=== PATIENT | female | born 1960 | race Caucasian/White ===

== ENCOUNTER → 2018-07-09 | Outpatient (CLI) | payer BC ==
--- NOTE | 2018-07-09 08:23 | CT ---
EXAMINATION TYPE: CT image guided sinus DATE OF EXAM: 07/09/2018 COMPARISON: None HISTORY: Chronic Sinusitis CT DLP: 511 mGycm. Automated Exposure Control for Dose Reduction was Utilized. TECHNIQUE: CT scan of the sinuses is performed without contrast. Axial images are reviewed for CT nupur ge guided sinus procedure. FINDINGS: There is evidence of moderate pansinusitis. Underlying polyposis not excluded. No fracture or bone destruction seen. IMPRESSION: Moderate pansinusitis. Underlying polyposis not excluded.
== END ==
LOC: RADCTMAIN 07:45
PROVIDERS: ATTEND Otolaryngology
DX: J32.4 Chronic pansinusitis (principal)
CPT/HCPCS: 70486

== ENCOUNTER 2018-07-29 07:31 | Day surgery (SDC) | payer BC ==
[2018-07-26 16:05] VITALS: BMI 33.4
[~2018-07-29 07:31] MED LIST: DEXAMETHASONE SOD PHOSPHATE 10 MG/ML 1 ML VIAL IV ONE; DEXAMETHASONE SOD PHOSPHATE 4 MG/ML 1 ML VIAL IV ONE; FAMOTIDINE 20 MG/2 ML VIAL IV ONE; LACTATED RINGERS 1,000 ML IV SCH; LIDOCAINE 1% 20 ML VIAL (10MG/ML) FOR IV START INTRADERMA PRN; MIDAZOLAM 2 MG/2 ML VIAL IV PRN; ONDANSETRON 4 MG/2 ML VIAL IVP ONE; ceFAZolin (PMX-bag) 1,000 MG in DEXTROSE/WATER 1 50ML.BAG IV ONE; fentaNYL (PF) 50 MCG/ML 2 ML AMP IV PRN
[2018-07-29] MEDS: OXYMETAZOLINE 0.05% NASL SPRAY 1 SPRAY BOTTLE NASAL ONE ×5 (08:02→08:29)
[2018-07-29 08:13] LABS: Glucose,Whole Blood 139 mg/dL (75-99)
[2018-07-29] MEDS ORDERED: BUPIVACAIN-EPI 0.5%-1:200,000 30 ML VIAL SQ ONE ×2 (09:29)
[2018-07-29] MEDS ORDERED: FLUORESCEIN STRIPS 1 MG STRIP MISCELLANE ONE (09:29)
[2018-07-29] MEDS ORDERED: EPINEPHrine 1 MG/ML (MDV) 30 ML VIAL IRRIGATION ONE (09:29)
[2018-07-29] MEDS ORDERED: LIDOCAINE 1%-EPI 1:100,000 20 ML VIAL SQ ONE ×2 (09:30)
[2018-07-29] MEDS ORDERED: ONDANSETRON 4 MG/2 ML VIAL ONE (09:31)
[2018-07-29] MEDS ORDERED: MIDAZOLAM 2 MG/2 ML VIAL ONE (09:31)
[2018-07-29] MEDS ORDERED: LIDOCAINE 1% INJ 10MG/ML (20 ML MDV) ONE (09:31)
[2018-07-29] MEDS ORDERED: ePHEDrine SULFATE/0.9% NACL/PF 50 MG/5 ML SYRINGE IV ONE (09:31)
[2018-07-29] MEDS ORDERED: DEXAMETHASONE SOD PHOS (MDV) 100 MG/10 ML VIAL ONE (09:31)
[2018-07-29] MEDS ORDERED: fentaNYL (PF) 50 MCG/ML 2 ML AMP ONE (09:31)
[2018-07-29] MEDS ORDERED: PROPOFOL 10 MG/ML 20 ML VIAL IV ONE (09:31)
[2018-07-29] MEDS ORDERED: SUCCINYLCHOLINE CHLORIDE 100 MG/5 ML SYR IV ONE (09:31)
[2018-07-29] MEDS ORDERED: LACTATED RINGERS 1,000 ML IV ONE (10:27)
[2018-07-29] MEDS ORDERED: BACITRACIN OINT 1 EACH PACKET TOPICAL ONE (10:54)
[2018-07-29 11:13] VITALS: TEMP 97.1
[2018-07-29] MEDS ORDERED: PROMETHAZINE INJ 25 MG/ML 1 ML VIAL IVPB ONE (11:33)
--- NOTE | 2018-07-29 11:36 | P.OP ---
Date of Procedure: 07/29/18 Preoperative Diagnosis: Chronic pansinusitis sinonasal polyposis Deviated nasal septum Hypertrophy of bilateral inferior nasal turbinates with obstruction Nasal polyposis Postoperative Diagnosis: Same Procedure(s) Performed: Image guided functional endoscopic sinus surgery with polypectomy Septoplasty Bilateral submucosal resection of the bilateral inferior nasal turbinates with outfracture and compression Anesthesia: WENDY Surgeon: Derrek Nazario Estimated Blood Loss (ml): 10 Pathology: other (Sinonasal) Condition: stable Disposition: PACU Indications for Procedure: This patient presented to the office with 8 years of constant sinus issues including sneezing, lacrimation, itching, drainage, persistent nasal obstruction, total anosmia, facial pain and headaches etc. etc. This patient has had total nasal obstruction and has tried multiple antibiotics over-the-co unter nasal sprays cortisone nasal sprays [id number] decongestants and antihistamines with no improvement. She is a chronic mouth breather as total nasal obstruction and total anosmia. CAT scan evaluation shows chronic pansinusitis with sinonasal polyposis deviated septum and large obstructive inferior turbinates. Since the patient has failed medical therapy over an 8 year time frame, we decided to proceed forward with surgery. All risks, benefits, and alternative therapies were discussed. Consent was obtained and all questions were answered. Operative Findings: Patient had widespread sinonasal disease with derrek pus coming from the maxillary ethmoid frontal and sphenoid sinuses. Deviated septum was corrected along with large obstructive inferior turbinates. Description of Procedure: This patient was taken to the operative room and placed in the supine position. A general inhalation anesthetic was administered to the patient by the department of anesthesia with a functioning IV line in place. The patient was monitored throughout the entire case by the department of anesthesia. The eyes were taped shut for protection. The patient was placed in a slight reverse Trendelenburg position. The patient had previously utilize Afrin nasal spray preoperatively. The nose was evaluated and the septum lateral nasal wall and inferior turbinates were injected with lidocaine 1% with epinephrine 1 100,000 bilaterally. Approximately 10 minutes were allowed wait for full vasoconstrictive effects to take place. At this point a caudal incision was made over the caudal portion of the left septum down to the mucoperichondrium. A mucoperichondrial flap was elevated on the left side and dissection was carried with use of tunnels posteriorly. We then made a crossover incision through the cartilage to the contralateral side and for the mucoperichondrial flap development was performed to the extent of visualization on the contralateral side. After the cartilage was freed with use of several crosshatching incisions and removal of some redundant strips of septal cartilage, the septum was straightened and placed back in the midline. The septum was sutured fixated to the ovarian groove. Excellent straightening occurred and the septum was visibly straight. Incision was closed with a 40 rapid Vicryl. We utilized a running nonlocking fashion for closure of the incision. A quilting stitch was used to reapproximate the septal flaps with use of a 40 rapid Vicryl. With use of a ZOZI image guided [employer] system, the system was registered and calibrated and we utilized anatomic way point throughout the entire procedure. Again we utilized this image guided system throughout the sinus surgery procedure especially as we were following the skull base posteriorly. We then entered the nose with a 0 and 30 Hernández rich endoscope. Previous to this we did inject the lateral nasal wall and middle turbinate and uncinate process with lidocaine 1% with epinephrine 1 100,000. Approximately 10 minutes were allowed wait for full vasoconstrictive effects to take place. Intranasal polyps were noted. They were noted bilaterally. The intranasal polyps were removed with use of a microdebrider. With use of a microdebrider and a pediatric backbiter, we took down the uncinate process bilaterally. We then opened the maxillary sinuses bilaterally. We utilized a microdebrider for this and entered the maxillary sinuses and removed diseased tissue and polypoid tissue. This was done bilaterally. After the maxillary sinuses were opened and the diseased tissue and polyps were removed we entered the ethmoid bulla and with use of a microdebrider and up-biting Elias, we remove the ante rior septations and remove diseased tissue from the anterior ethmoids with direct visualization. We then followed the fovea frontalis through the basal lamella and into the posterior ethmoid air cells and did a total ethmoidectomy with removal of polypoid material. Once the ethmoids cells were all taken down we then entered the sphenoid sinus medially and inferiorly underneath the inferior attachment of the superior turbinate. The sphenoid sinus was opened entered and diseased tissue and polyps were removed bilaterally. This was done with a microdebrider and Eloina. We then entered the frontal sinuses with a giraffe and up-biting Eloina entered on the agar nasi cells. We open the frontal sinuses and removed sinus tissue and polypoid tissue that was diseased. We explored the frontal sinuses bilaterally. To summarize all sinuses were open all sinuses were explored and we remove diseased tissue and polyps from the sphenoid maxillary and frontal sinuses. Polyps were removed from the nose. Ethmoid sinuses were opened totally. Nasal pore was inserted and minimal bleeding was encountered. We reinspected the skull base there is no signs of any orbital penetration or signs of any intracranial penetration. The sugical site was reinspected after the nasal pore was placed and no bleeding was seen. Attention was then paid to the inferior turbinates. The bilateral inferior turbinates were hypertrophic and obstructive. We entered the anterior portion of the inferior turbinates with use of a microdebrider. We remove bone and submucosal elements with use of a microdebrider bilaterally. The inferior turbinates underwent a submucosal resection with removal of submucosal tissue and bone. We obtained a much better and normal in size for breathing. The inferior turbinates were then outfractured and compressed with a WEISSENHAUSes nasal elevator. Excellent airway was obtained and was symmetric bilaterally. No bleeding was encountered. Intranasal splints were inserted and fixated at the end of the case. We utilized Olivo nasal splints. There will be removed and the patient returns to the office.
[2018-07-29 13:04] VITALS: PULSE 81
[2018-07-29 14:16] VITALS: BP 137/84; RESP 18
== END 2018-07-29 14:20 | disposition home or self-care (01) ==
LOC: OR 07:31
PROVIDERS: ATTEND Otolaryngology
DX: J32.4 Chronic pansinusitis (principal); J34.2 Deviated nasal septum; J34.3 Hypertrophy of nasal turbinates; J33.8 Other polyp of sinus; J30.1 Allergic rhinitis due to pollen; Z79.2 Long term (current) use of antibiotics; Z79.51 Long term (current) use of inhaled steroids; Z79.52 Long term (current) use of systemic steroids; Z79.899 Other long term (current) drug therapy; Z91.048 Other nonmedicinal substance allergy status
CPT/HCPCS: 88305; 88300; 30520; 30140; 31267; 31259; 31253; 61782; C2625; J0171; J2250; J1100 ×2; J2550; J2405; J2001; J3010; J0690; J0330; J2704